=== PATIENT | male | born 1930 | race Caucasian/White ===

== ENCOUNTER 2019-03-19 10:37 | Day surgery (SDC) | payer MEDICARE, BC ==
[~2019-03-19] VITALS: Ht 177.8 cm; Wt 89.0 kg
[~2019-03-19 10:37] MED LIST: FERROUS SU325 MG/TAB PO; FLOMAX 0.40.4 MG/CAP PO; FOLIC ACID 40400 MCG PO; GLUCOPHAGE500 MG/TAB; VITAMIN C500 MG PO
[2019-03-19] MEDS ORDERED: EFFEXOR XR75 MG/CAP PO (11:14)
[2019-03-19] MEDS ORDERED: SYNTHROID0.05 MG/TA PO (11:15)
[2019-03-19] MEDS ORDERED: ARICEPT10 MG PO (11:16)
[2019-03-19] MEDS ORDERED: DULCOLAX S10 MG/SUPP RC (11:18)
[2019-03-19] MEDS ORDERED: DITROPAN XL 5MG5 M1 PO (11:21)
[2019-03-19] MEDS ORDERED: NAMENDA 10MG TA10 MG PO (11:22)
[2019-03-19] MEDS ORDERED: GLUCOTROL 5M5 MG/TAB PO (11:22)
[2019-03-19] MEDS ORDERED: PROTONIX 40MG T40 MG PO (11:23)
[2019-03-19] MEDS ORDERED: SINEMET 25/101 UDTAB PO (11:24)
[2019-03-19 11:25] VITALS: BP 149/70; PULSE 76; TEMP 97.7
[2019-03-19] MEDS ORDERED: TYLENOL 325MG325 MG PO (11:26)
[2019-03-19 11:32] LABS: HEMATOCRIT 38.8 % (42.0-52.0); HEMOGLOBIN 12.5 g/dl (13.5-18.0); MEAN CELL VOLUME 92 fl (80.0-100.0); MEAN CORPUSCULAR HEMOGLOBIN 30 pg (27.0-31.0); MEAN CORPUSCULAR HGB CONC 32 g/dl (33.0-37.0); MEAN PLATELET VOLUME 9.1 fl (7.4-10.4); PLATELET COUNT 357 K/mm3 (130-400); RED BLOOD COUNT 4.22 M/mm3 (4.20-5.60); REDCELL DISTRIBUTION WIDTH-CV 13.8 % (11.5-14.5)
[2019-03-19 11:37] LABS: ALBUMIN 3.5 gm/dL (3.5-5.0); CALCIUM 9.1 mg/dL (8.4-10.2); CREATININE, serum 0.88 (0.66-1.25); POTASSIUM 4.8 mmol/L (3.4-5.0)
[2019-03-19 14:00] VITALS: BP 148/78; PULSE 89; TEMP 97.2
--- NOTE | 2019-03-19 14:00 | NUR ---
Patient arrives to [facility] [address] via cart, accompanied by DRIVER/REFUSE COLLECTOR and anesthesia provider. Bedside report received. Patient is drowsy, but easily aroused to voice and oriented. His is brought to the bedside. Patient's port incision is clean, dry, intact. G tube incision is clean, dry, intact and has an abdominal binder in place. Patient denies any pain or nausea. Report called to YANDY Taylor at [facility]. Transportation notified of need for ride as well.
[2019-03-19 14:15] VITALS: BP 141/75; PULSE 84
--- NOTE | 2019-03-19 14:15 | NUR ---
VSS and WNL on room air. Resting comfortably in room. Denies pain, nausea, or need. Incisions remain WNL.
--- NOTE | 2019-03-19 14:24 | NUR ---
Social Workers received a referral for PEG tube and met with the patient and his to review discharge plan. Patient plans to return to [facility] this afternoon. GAIL contacted GAIL Jensen at [facility] to confirm transportation for afternoon discharge. GAIL also contacted YANDY Guevara at [facility] to confirm availability of Glucerna 1.5. No additional concerns at this time.
--- NOTE | 2019-03-19 14:26 | NUR ---
CRISTA from Dr. Horn at this time for patient to remain NPO for 6 hours (until 1999 ton). Also states that patient may discharge home at any time.
[2019-03-19 14:30] VITALS: BP 140/72; PULSE 76
--- NOTE | 2019-03-19 14:30 | NUR ---
VSS and WNL on room air. Patient is resting comfortably in room. Denies pain, nausea, or need.
[2019-03-19] MEDS ORDERED: ULTRAM 50MG TAB50 MG PO (14:43)
[2019-03-19 14:45] VITALS: BP 138/77; PULSE 76
[2019-03-19 15:00] VITALS: BP 139/73; PULSE 77
--- NOTE | 2019-03-19 15:00 | NUR ---
Patient is ready to discharge home. PIV removed with catheter intact and hemostasis achieved. Assisted to change to clothing and transfer back to personal wheelchair. Discharge instructions reviewed with patient and his , report also called to snf. Waiting on transportation to dismiss.
--- NOTE | 2019-03-19 15:22 | NUR ---
Port information, discharge instructions, information packets, paper prescription for Ultram, and physician instructions sent with patient for detention.
--- NOTE | 2019-03-19 15:46 | NUR ---
Patient's transportation has arrived. Escorted to exit via wheelchair. Discharged to [facility] with ride in transportation bus at [id number].
== END 2019-03-19 15:46 | disposition home or self-care (01) ==
LOC: SDCO 10:37
PROVIDERS: Surgery
DX: C15.9 Malignant neoplasm of esophagus, unspecified (principal); E11.9 Type 2 diabetes mellitus without complications; M35.3 Polymyalgia rheumatica; M19.90 Unspecified osteoarthritis, unspecified site; G20 Parkinson's disease; G47.30 Sleep apnea, unspecified; G47.33 Obstructive sleep apnea (adult) (pediatric); E07.9 Disorder of thyroid, unspecified; F41.8 Other specified anxiety disorders; R13.10 Dysphagia, unspecified; Z79.899 Other long term (current) drug therapy; Z88.2 Allergy status to sulfonamides; Z88.0 Allergy status to penicillin; Z87.891 Personal history of nicotine dependence; Z79.84 Long term (current) use of oral hypoglycemic drugs; Z96.641 Presence of right artificial hip joint; Z80.0 Family history of malignant neoplasm of digestive organs
CPT/HCPCS: C1788; J0690; J2704; J3010; J7030